=== PATIENT | male | born 1990 | race Caucasian/White ===

== ENCOUNTER 2021-01-20 13:42 | Emergency (ER) | payer OTHER, SELFPAY ==
[2021-01-20 13:44] VITALS: BP 132/85; PULSE 115; RESP 17; TEMP 36.4; O2SAT 98; BMI 23.1
[2021-01-20] MEDS: Lidocaine/Epi/Tetracaine 50 ML 1 APPLIC TOPICAL (14:46)
[2021-01-20] MEDS: Lidocaine 1% /Epi 1:100 (20ml) 20 ML Vial INFILT (14:58)
--- NOTE | 2021-01-20 15:17 | EDS_ITS ---
HPI History of Present Illness Chief Complaint: Head Injury Informant: patient Onset/Context/Timing Onset: Hours (1-2) Mechanism/Context: Blunt Injury Location of pain/injuries: - (scalp) Quality of Pain: - (sore) Current Severity: Mild Maximum Severity: Moderate Worsened by: palpation Associated Symptoms Associated Symptoms: Negative for Parasthesias, Weakness, Loss of function, Inability to ambulate, Loss of consciousness and Amnesia Narrative Narrative: Healthy 30-year-old was cutting wound with some friends, they had just finished, saws were turned off, he took his hard hat off, and then a 2 inch in diameter tree branch fell 10-20 feet from the tree unexpectedly, striking him in the scalp and sustaining a laceration. There was no loss of consciousness, he has developed no headache, nausea, vomiting, vision changes, peripheral neurologic symptoms of any type. Last tetanus shot was 2 years ago. Tetanus Immunization: <5 years [facility] Medical History no medical history no medical history Home Medications NK 01/20/21 [History Last Taken Unknown] Allergy/AdvReac Type Severity Reaction Status Date / Time No Known Allergies Allergy Verified 01/20/21 13:43 Surgical History no surgical history no surgical history Social History Smoking Status: Unknown if ever smoked ROS ROS ED Constitutional Constitutional ED: Denies chills or fever(s) Eyes Eyes: Denies blurry vision, change in vision or double vision ENT ENT ED: Denies ear pain, nasal discharge or rhinorrhea Gastrointestinal Gastrointestinal: Denies nausea or vomiting Integumentary Reports laceration; Denies rash Neurologic Neurologic: Denies headache(s), paresthesias or weakness EXAM Physical Exam Const Vital Signs: 01/20/21 13:44 Temperature 97.5 F L Temperature Source Oral Pulse Rate 115 H Respiratory Rate 17 Blood Pressure 132/85 H Blood Pressure Mean 100 Pulse Ox 98 Oxygen Delivery Method Room Air Positive well nourished and well developed General Appearance ED: well developed and NAD HEENT Reports TM's clear HEENT Narrative: C-shaped 4 cm laceration full-thickness to the scalp, subcutaneous layers noted, galea intact. No crepitance or depression or large hematoma. This is in the right high parietal scalp. No facial trauma/tenderness. trauma and tenderness Tympanic Membrane ED: Yes TM's clear Eyes PERRL and EOMs intact bilaterally Chest Wall inspection of chest normal and palpation of chest normal Resp normal respiratory effort Extremity normal to inspection and full ROM General Extremety ED: Negative for tenderness Neuro oriented x3, CN's II-XII intact bilaterally, no focal motor deficits, no sensory deficits noted and gait normal Twilight Coma Scale: document GCS findings Spontaneous Obeys Commands Oriented 15 Sensorium / Orientation: alert Psych mental status grossly normal and thought process normal Skin Skin Narrative: Full-thickness clean appearing C-shaped laceration to the right high parietal scalp. See above. It is clean appearing without any foreign material. PROC Procedures Lacerations Scalp: Length: 4 cm Depth: Sub Q Shape: c-shaped, clean Prep: Sterile Conditions and Chlorhexadine Laceration repair: Irrigated, Lidocaine with epi (2cc 1%) and Local Number of Sutures/[place]: 5 Suture Information: - (Stainless skin shemar) Comment: Good skin edge apposition and hemostasis obtained after closure MDM MDM MDM Narrative Medical decision making narrative: Via the [place] head CT rule, patient does not require head scanning. He is in agreement, stating I have had worse than this. The laceration was initially prepped with topical LET, followed by injection of 2 cc of 1% lidocaine with epinephrine. Wound was stapled repaired. Removal in approximately 5-6 days, we discussed reasons to return for that he is comfortable with that plan. Discharge Plan Triage Chief Complaint: Head Injury ED Provider: Rayo Calix Dx/Rx/DC Orders Clinical Impression: Scalp laceration Instructions: ED Laceration Scalp Stitches or A[place] Prescriptions: No Action NK RF: 0 Primary Care Provider: Juan Schaefer Referrals: Juan Schaefer MD [Primary Care Provider] - 5 Days for suture removal (5-7 days, may also go to urgent care or ER for wound reevaluation, suture removal) Disposition Disposition: Home, Self Care
== END 2021-01-20 15:28 | disposition home or self-care (01) ==
PROVIDERS: Emergency Provider Emergency Medicine; PCP Family Medicine
DX: S01.01XA Laceration without foreign body of scalp, initial encounter (principal); W20.8XXA Other cause of strike by thrown, projected or falling object, initial encounter; Y93.89 Activity, other specified; Y92.9 Unspecified place or not applicable; Y99.9 Unspecified external cause status
CPT/HCPCS: 12002; 99283

== ENCOUNTER 2022-07-12 10:58 | Emergency (ER) | payer OTHER, SELFPAY ==
[2022-07-12 10:59] VITALS: BP 150/86; PULSE 64; RESP 14; TEMP 36.1; O2SAT 100; BMI 23.1
--- NOTE | 2022-07-12 11:14 | EKG12_ITS ---
Test Reason : CP Blood Pressure : / mmHG Vent. Rate : 066 BPM Atrial Rate : 066 BPM P-R Int : 168 ms QRS Dur : 110 ms QT Int : 406 ms P-R-T Axes : 055 100 048 degrees QTc Int : 425 ms Normal sinus rhythm Rightward axis Incomplete right bundle branch block Borderline ECG Confirmed by BRAULIO JOHNSON, RITO ([id number]), graphics editor REBEL DONALDSON ([id number]) on 07/16/2022 10:32:24 AM Referred By: Confirmed By:RITO RAMSEY MD
--- NOTE | 2022-07-12 11:14 | RAD_ITS ---
STUDY: X-RAY CHEST REASON FOR EXAM: Male, 32 years old. Chest pain TECHNIQUE: Single AP portable view x2 of the chest. COMPARISON: None. FINDINGS: The lungs are clear and expanded. There is no demonstrated pleural abnormality. Normal size heart. Normal mediastinum and shawn. Normal visualized pulmonary arteries. Normal visualized aortic arch and descending thoracic aorta. Normal visualized thoracic spine. Normal visualized ribs, clavicles, and shoulders. There is no demonstrated abnormality of the visualized soft tissue structures of the upper abdomen. RAD/Chest 1 View (Portable) IMPRESSION: Normal x-ray examination of the chest. Electronically Signed: Rosa Gandhi MD at 12:24 EDT Reading Location ID and State: [facility] / [place] Tel , Service support ,
--- NOTE | 2022-07-12 11:25 | ED.VIS.CHEST ---
HPI <STEFANIE Chang - Last Filed: 07/12/22 17:36> History of Present Illness Chief Complaint: Chest Pain Narrative Narrative: Patient presenting today due to sharp left-sided chest pain that he has had intermittently since last night. He states that last night the pain was more constant and worsened when he would take a deep breath but he also felt like his left arm, did not feel right. Last night he reports he also felt lightheaded, sweaty, and anxious. When his symptoms subsided last night he ended up going to bed but then this morning noticed he still had chest pain when taking a deep breath so he thought he would come in to be evaluated. He reports a history of a left bundle branch block that was diagnosed 3 years ago. He did have a stress test at that time but did not end up following up with a travel accommodation inspector again after that. He takes a baby aspirin daily. He reports that his mother has atrial fibrillation but denies any other cardiac disease in his family. He denies a PMH of any chronic health conditions. He denies a history of any blood clots, recent surgery/procedures, recent travel, recent immobilization. PFSH <STEFANIE Chang - Last Filed: 07/12/22 17:36> PFSH Home Medications meclizine 25 mg tablet 25 mg PO 4X/DAY PRN PRN Dizziness #10 tabs 07/12/22 [Rx Last Taken Unknown] Allergy/AdvReac Type Severity Reaction Status Date / Time No Known Allergies Allergy Verified 07/12/22 11:02 Social History Smoking Status: Current every day smoker tobacco type: cigarettes ROS <STEFANIE Chang - Last Filed: 07/12/22 17:36> ROS ED Constitutional Constitutional ED: Denies chills or fever(s) Eyes Eyes: Denies blurry vision or diplopia Cardiovascular Cardiovascular: Reports chest pain; Denies palpitations Respiratory/Chest Respiratory/Chest: Denies cough, dyspnea or dyspnea on exertion Gastrointestinal Gastrointestinal: Denies abdominal pain, nausea or vomiting Musculoskeletal Musculoskeletal: Denies arthralgias or myalgias Integumentary Denies abscess, Abrasions or rash Neurologic Neurologic: Denies dizziness, paresthesias or weakness Psychiatric Psychiatric: Reports anxiety EXAM <STEFANIE Chang - Last Filed: 07/12/22 17:36> Physical Exam Const Vital Signs: 07/12/22 10:59 Temperature 97.0 F L Temperature Source Temporal Pulse Rate 64 Respiratory Rate 14 Blood Pressure 150/86 H Blood Pressure Mean 107 Pulse Ox 100 Oxygen Delivery Method Room Air Positive well nourished, well developed and no apparent distress General Appearance ED: well developed HEENT Reports normocephalic and head/scalp atraumatic Mouth ED: Yes moist mucous membranes normal Eyes PERRL and EOMs intact bilaterally Neck full ROM and supple Chest Wall inspection of chest normal Resp normal respiratory effort and clear to auscultation bilaterally Cardio regular rate and regular rhythm GI soft to palpation, non-tender, non-distended and no masses Back/Spine normal ROM and normal to inspection Extremity normal to inspection and full ROM Neuro oriented x3, CN's II-XII intact bilaterally, moves all extremities, no focal motor deficits and no sensory deficits noted Sensorium / Orientation: awake and alert Psych mental status grossly normal and thought process normal Skin no rashes or lesions noted and no wounds <Dr. Ronald Portillo, DO - Last Filed: 07/14/22 16:45> Physical Exam Const Vital Signs: 07/12/22 10:59 Temperature 97.0 F L Temperature Source Temporal Pulse Rate 64 Respiratory Rate 14 Blood Pressure 150/86 H Blood Pressure Mean 107 Pulse Ox 100 Oxygen Delivery Method Room Air MDM <STEFANIE Chang - Last Filed: 07/12/22 17:36> [facility] MDM Narrative Medical decision making narrative: Patient reporting due to sharp left-sided chest pain that he has had while taking deep breaths that started yesterday. The pain is intermittent. He reports that he was diagnosed with a bundle branch block that he thinks was on the left side and had a stress test 3 years ago and was supposed to take some sort of medication to help with his symptoms but did not take them and did not follow-up with the travel accommodation inspector. 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 Does report having anxiety. Reports that he does get chest pain occasionally. Labs to be obtained to rule out leukocytosis, anemia, ACS, electrolyte abnormality. EKG does not show any ST elevation, troponin is WNL. Labs are unremarkable. Chest x-ray obtained to rule out infiltrate, pneumothorax, and is negative for any acute cardiopulmonary abnormality. I think that patient's symptoms are likely attributed to his anxiety/ stress. He is to follow-up with cardiology and PCP, we will give him a prescription for hydroxyzine, and he will be discharged home in stable condition. He is comfortable with plan. Lab Data Attestation: I reviewed the patient's lab results. Labs: Laboratory Results - last 24 hr 07/12/22 07/12/22 11:30 11:30 WBC 6.8 RBC 5.26 Hgb 15.7 Hct 46.8 MCV 89.0 MCH 29.8 MCHC 33.5 RDW Std Deviation 40.9 RDW Coeff of Frank 12.5 Plt Count 242 MPV 10.4 Immature Gran % (Auto) 0.100 Neut % (Auto) 57.6 Lymph % (Auto) 28.7 Hudson % (Auto) 8.5 Eos % (Auto) 4.2 Baso % (Auto) 0.9 Absolute Neuts (auto) 3.9 Absolute Lymphs (auto) 1.96 Nucleated RBC % 0 Sodium 141 Potassium 3.8 Chloride 104 Carbon Dioxide 31.0 Anion Gap 6 BUN 12 Creatinine 1.03 Estim Creat Clear Calc 118.90 Est GFR (MDRD) Af Amer 107 Est GFR (MDRD) Non-Af 89 BUN/Creatinine Ratio 11.7 Glucose 95 Calcium 9.1 Troponin I High Sens 5 Radiography X-Ray: Read by ED Physician and Read by Radiologist Diagnostic Testing: Clinical Impression(s) from Imaging Studies Chest X-Ray 07/12/22 11:14 IMPRESSION: Normal x-ray examination of the chest. Electronically Signed: Rosa Gandhi MD at 12:24 EDT , EKG Initial EKG: Comments: 6 bpm, normal sinus rhythm, incomplete right bundle branch block, no ST elevation, reviewed and interpreted by attending ED physician <Dr. Ronald Portillo, DO - Last Filed: 07/14/22 16:45> [facility] Lab Data Labs: Laboratory Results - last 24 hr 07/12/22 07/12/22 11:30 11:30 WBC 6.8 RBC 5.26 Hgb 15.7 Hct 46.8 MCV 89.0 MCH 29.8 MCHC 33.5 RDW Std Deviation 40.9 RDW Coeff of Frank 12.5 Plt Count 242 MPV 10.4 Immature Gran % (Auto) 0.100 Neut % (Auto) 57.6 Lymph % (Auto) 28.7 Hudson % (Auto) 8.5 Eos % (Auto) 4.2 Baso % (Auto) 0.9 Absolute Neuts (auto) 3.9 Absolute Lymphs (auto) 1.96 Nucleated RBC % 0 Sodium 141 Potassium 3.8 Chloride 104 Carbon Dioxide 31.0 Anion Gap 6 BUN 12 Creatinine 1.03 Estim Creat Clear Calc 118.90 Est GFR (MDRD) Af Amer 107 Est GFR (MDRD) Non-Af 89 BUN/Creatinine Ratio 11.7 Glucose 95 Calcium 9.1 Troponin I High Sens 5 Radiography Diagnostic Testing: Clinical Impression(s) from Imaging Studies Chest X-Ray 07/12/22 11:14 IMPRESSION: Normal x-ray examination of the chest. Electronically Signed: Rosa Gandhi MD at 12:24 EDT Reading Location ID and State: [facility] / [place] Tel , Service support , EKG Initial EKG: Attestation: I personally reviewed and interpreted this EKG as follows: Additional Tests and Interventions Diagnositc testing considered but not performed: I, Dr Portillo, have reviewed the above progress note and course of action in the ER; agree with the above. I have personally seen and evaluated this patient, gone over history and physical, and discussed disposition and treatment plan with the patient. Discharge Plan Triage Chief Complaint: Chest Pain ED Midlevel Provider: Jacki Valdivia ED Provider: Ronadl Portillo Dx/Rx/DC Orders Clinical Impression: Chest pain, Anxiety Instructions: ED Chest Pain, Uncertain Cause Prescriptions: New meclizine [meclizine] 25 mg tablet 25 mg PO 4X/DAY PRN PRN (Reason: Dizziness) Qty: 10 0RF Rx Instructions: Use 1?2 tabs every 6-8 hours prn anxiety Primary Care Provider: Juan Schaefer Referrals: Chi White MD [Med Staff - Active Staff] - 3-5 Days Juan Schaefer MD [Primary Care Provider] - Activity Restrictions/Additional Instructions: Follow-up with cardiology and return for any worsening of symptoms. Disposition Disposition: Home, Self Care Discharge Date/Time: 07/12/22 12:53
[2022-07-12 11:34] LABS: Absolute Lymphocyte Count 1.96 X10^3/uL (0.83-4.51); Absolute Neutrophil Count 3.9 X10^3/uL (2.0-7.7); Basophil# 0.06 X10^3/uL; Basophil% 0.9 % (0-1); Eosinophil# 0.29 X10^3/uL; Eosinophils% 4.2 % (0-5); Hematocrit 46.8 % (40-54); Hemoglobin 15.7 g/dL (13.0-16.5); Lymphocyte # 1.96 X10^3/ul (0.83-4.51); Lymphocyte % 28.7 % (19-41); Mean Corp Hgb Conc 33.5 g/dL (32-36); Mean Corpuscular Hgb 29.8 pg (27.0-32.0); Mean Platelet Vol. 10.4 fl (6.2-12.0); Monocyte# 0.58 X10^3/uL; Monocyte% 8.5 % (0-10); NRBC Flagged by Analyzer 0 % (0-5); Neutrophil # 3.93 X10^3/uL (2.7-7.7); Neutrophil % 57.6 % (47-70); Platelet Count 242 K/mm3 (150-450); RBC Distribution Width CV 12.5 % (11.6-14.6); RBC Distribution Width SD 40.9 fl (35.1-43.9); Red Blood Count 5.26 M/mm3 (4.6-6.2); White Blood Count 6.8 K/mm3 (4.4-11.0)
[2022-07-12 11:52] LABS: Anion Gap 6 (5-15); BUN 12 mg/dL (7-18); BUN/Creat Ratio 11.7 RATIO (10-20); Calcium,Total 9.1 mg/dL (8.5-10.1); Chloride 104 mmol/L (98-107); Creatinine, Serum 1.03 mg/dL (0.70-1.30); EST Glomerular Filtration Rate 89 mL/min (>60); Est Glom Filt Rate - Afr Amer 107 mL/min (>60); Glucose 95 mg/dL (74-106); Potassium 3.8 mmol/L (3.5-5.1); Sodium Level 141 mmol/L (136-145); Troponin-I HS 5 pg/mL (3.0-78.0)
== END 2022-07-12 12:53 | disposition home or self-care (01) ==
PROVIDERS: Physician Assistant; Emergency Provider Emergency Medicine; PCP Family Medicine; Visit Provider Emergency Medicine
DX: R07.9 Chest pain, unspecified (principal); F41.9 Anxiety disorder, unspecified; F17.210 Nicotine dependence, cigarettes, uncomplicated; Z79.82 Long term (current) use of aspirin
CPT/HCPCS: 71045; 80048; 84484; 85025; 93005; 99284

== ENCOUNTER 2023-06-05 17:50 | Emergency (ER) | payer OTHER, SELFPAY ==
[2023-06-05 17:50] VITALS: BP 122/74; PULSE 112; RESP 16; TEMP 36.8; O2SAT 98; BMI 23.1
--- NOTE | 2023-06-05 18:36 | EKG12_ITS ---
Test Reason : PALPS/CP Blood Pressure : / mmHG Vent. Rate : 100 BPM Atrial Rate : 100 BPM P-R Int : 122 ms QRS Dur : 100 ms QT Int : 334 ms P-R-T Axes : 039 096 034 degrees QTc Int : 430 ms Normal sinus rhythm Rightward axis Borderline ECG Confirmed by BRAULIO JOHNSON, RITO ([id number]), assignment desk editor RICKIE RODRIGUEZ ([id number]) on 06/06/2023 8:20:25 AM Referred By: SSUAN Confirmed By:RITO RAMSEY MD
--- NOTE | 2023-06-05 18:39 | EX.ED.DYSGE1 ---
HPI History of Present Illness Chief Complaint: Hypertension Detail of Chief Complaint: Elevated blood pressure at urgent care, chief complaint N/V/D Informant: patient Onset/Context/Timing Onset: Yesterday Context: Sudden Onset Timing: Intermittent Quality: Vomiting x 10 and diarrhea x 10 Location: GI Current Severity: Mild (Nausea presently) Maximum Severity: Severe Worsened by: Anytime he attempts to eat or drink anything Relieved by: Nothing Associated Symptoms Associated Symptoms: Reported elevated blood pressure at urgent care Narrative Narrative: Patient is a 33-year-old male with no significant past medical history. He presents with nausea, vomit diarrhea. This started yesterday. He states since yesterday has vomited greater than 10 times has had 10 loose stools. Not know any blood or mucus in the stool. He has had no ill contacts to his knowledge. He does endorse dry mouth, thirst and orthostatic symptoms. He does endorse throat pain due to the vomiting. He denies headache, visual, ocular auditory symptoms. Denies hearing symptoms. He denies neck pain or neck stiffness. He denies cough, shortness of breath or difficulty breathing. He denies chest pain. He denies dysuria, frequency, urgency or hematuria. Patient does endorse decreased urine output. Patient denies myalgias or arthralgias. Denies skin lesions. He does have a history of vertigo. Prior similar symptoms: No Recent Illness/Hospitalization: No PFSH PFS Medical History (Updated 06/05/23 @ 21:[address] Rogerio Garza MD) Nausea and vomiting Medical History no medical history no medical history Home Medications ondansetron 4 mg disintegrating tablet 4 mg PO Q8H PRN PRN Nausea #10 tabs 06/05/23 [Rx Last Taken Unknown] Allergy/AdvReac Type Severity Reaction Status Date / Time No Known Allergies Allergy Verified 06/05/23 17:54 Surgical History no surgical history no surgical history Social History Smoking Status: Current every day smoker tobacco type: cigarettes ROS ROS ED Constitutional Constitutional ED: Denies chills, fever(s), subjective, sweats or weight loss Eyes Eyes: Denies blurry vision, change in vision or diplopia ENT ENT ED: Denies ear pain, rhinorrhea or sore throat Cardiovascular Cardiovascular: Denies chest pain, orthopnea, palpitations, paroxysmal nocturnal dyspnea or racing heartbeat Respiratory/Chest Respiratory/Chest: Denies cough, dyspnea, dyspnea on exertion, orthopnea or paroxysmal nocturnal dyspnea Gastrointestinal Gastrointestinal: Reports abdominal pain, diarrhea, nausea and vomiting; Denies melena Genitourinary Genitourinary ED: Reports other Details: Per HPI narrative ; Denies dysuria, hematuria or urinary frequency Musculoskeletal Musculoskeletal: Denies arthralgias or back pain Integumentary Denies rash Neurologic Neurologic: Reports weakness; Denies headache(s) or paresthesias Hematologic/Lymphatic Hematologic/Lymphatic: Reports systems reviewed and no addt'l complaints, except as documented EXAM Physical Exam Const Vital Signs: 06/05/23 17:50 06/05/23 18:45 06/05/23 18:51 Temperature 98.3 F 99.5 F H Temperature Source Temporal Oral Pulse Rate 112 H 89 Respiratory Rate 16 18 Respiratory Effort Normal Non-Labored Respiratory Pattern Normal Blood Pressure 122/74 H 126/84 H Blood Pressure Mean 90 98 Pulse Ox 98 99 Oxygen Delivery Method Room Air Room Air 06/05/23 20:29 Temperature 100.3 F H Temperature Source Oral Pulse Rate 100 Respiratory Rate 19 H Respiratory Effort Respiratory Pattern Blood Pressure 128/70 H Blood Pressure Mean 89 Pulse Ox 99 Oxygen Delivery Method Room Air Positive well nourished and well developed General Appearance ED: well developed and NAD; Negative for cyanotic, diaphoretic or pallor HEENT Reports dry mucous membranes HEENT Narrative: Posterior pharynx out erythema or exudate. Uvula midline. Ears normal. Nares patent. Mouth ED: Yes dry mucous membranes Mouth: dry mucous membranes Eyes PERRL and EOMs intact bilaterally General Eye ED: Negative for pale conjunctiva or scleral icterus Neck no lymphadenopathy, supple and no JVD Chest Wall inspection of chest normal and palpation of chest normal Resp normal respiratory effort and clear to auscultation bilaterally Cardio regular rhythm, S1 normal heart sound, S2 normal heart sound and no murmurs Rate: tachycardic GI normal to inspection, nondistended, normoactive bowel sounds, non-tender, non-distended and no masses; Negative for hepatosplenomegaly Auscultation: hypoactive bowel sounds Palpation: soft Back/Spine no CVA tenderness Cervical Spine: Negative for cervical spine tenderness Thoracic Spine / Upper Back: Negative for thoracic spinal tenderness Lumbar Spine / Lower Back: Negative for lumbar spinal tenderness Extremity normal to inspection Neuro oriented x3, CN's II-XII intact bilaterally and no sensory deficits noted Sensorium / Orientation: alert Motor Exam: strength 5/5 throughout Psych mental status grossly normal Skin no rashes or lesions noted, no wounds and No skin turgor normal General Skin Exam: Negative for jaundice or pallor MDM MDM MDM Narrative Medical decision making narrative: Clinically patient appears dehydrated. He is tachycardic. 1 L of normal saline was ordered. BUN and creatinine were obtained to assess for hypokalemia and renal function. Zofran for his nausea and vomiting. He has no [place] past medical history per review of records. His blood pressure is normal/slightly elevated. History & Record Review Additional record(s) reviewed:: Prior labs Lab Data Attestation: I reviewed the patient's lab results. Lab results narrative: Basic metabolic panel is normal. Comparison was 1 year ago and was normal. Labs: Laboratory Results - last 24 hr 06/05/23 18:00 Sodium 138 Potassium 3.6 Chloride 107 Carbon Dioxide 24.0 Anion Gap 7 BUN 16 Creatinine 1.12 Estim Creat Clear Calc 108.52 Est GFR (MDRD) Af Amer 97 Est GFR (MDRD) Non-Af 80 BUN/Creatinine Ratio 14.3 Glucose 104 Calcium 8.7 Treatment and Re-Evaluation :: Patient did pass p.o. challenge. Temperature is elevated to 100.3 ?F. Discharge Plan Triage Chief Complaint: Hypertension ED Provider: Rogerio Garza Dx/Rx/DC Orders Clinical Impression: Nausea vomiting and diarrhea, Acute dehydration, Fever in adult, Sinus tachycardia seen on cardiac specialist, Acute generalized abdominal pain Instructions: ED Vomit Diarrhea Nonspec Adult Prescriptions: New ondansetron [ondansetron] 4 mg tablet,disintegrating 4 mg PO Q8H PRN PRN (Reason: Nausea) Qty: 10 0RF Primary Care Provider: Tr Chu Referrals: Refugio Schaefer MD [Med Staff - Spinning Frame Tender] - 3-5 Days if not improving Disposition Disposition: Home, Self Care
[2023-06-05] MEDS: 0.9% Normal Saline (1000mL) 1,000 ML 1000 ML IV (18:42)
[2023-06-05] MEDS: Ondansetron 4 MG/2 ML Vial IV (18:49)
[2023-06-05 18:51] VITALS: BP 126/84; PULSE 89; RESP 18; TEMP 37.5; O2SAT 99
[2023-06-05 19:09] LABS: Anion Gap 7 (5-15); BUN 16 mg/dL (7-18); BUN/Creat Ratio 14.3 RATIO (10-20); Calcium,Total 8.7 mg/dL (8.5-10.1); Chloride 107 mmol/L (98-107); Creatinine, Serum 1.12 mg/dL (0.70-1.30); EST Glomerular Filtration Rate 80 mL/min (>60); Est Glom Filt Rate - Afr Amer 97 mL/min (>60); Estimated Creatinine Clearance 108.52 ml/min; Glucose 104 mg/dL (74-106); Potassium 3.6 mmol/L (3.5-5.1); Sodium Level 138 mmol/L (136-145)
[2023-06-05 20:29] VITALS: BP 128/70; PULSE 100; RESP 19; TEMP 37.9; O2SAT 99
[2023-06-05 21:23] VITALS: BP 113/84; PULSE 89; RESP 19; TEMP 37.9; O2SAT 99
== END 2023-06-05 21:29 | disposition home or self-care (01) ==
PROVIDERS: Emergency Provider Emergency Medicine; PCP Family Medicine; Visit Provider Emergency Medicine
DX: R11.2 Nausea with vomiting, unspecified (principal); R19.7 Diarrhea, unspecified; R10.84 Generalized abdominal pain; E86.0 Dehydration; R00.0 Tachycardia, unspecified; R50.9 Fever, unspecified; I10 Essential (primary) hypertension; F17.210 Nicotine dependence, cigarettes, uncomplicated
CPT/HCPCS: 80048; 93005; 96361; 96374; 99285; J7030; J2405